=== PATIENT | female | born 1950 | race African-American/Black ===

== ENCOUNTER → 2016-11-14 | Outpatient (CLI) | payer MEDICARE, OTHER ==
[~2016-11-14] VITALS: Ht 167.6 cm; Wt 51.7 kg
[2016-11-14] VITALS (7 sets, daily range): BP systolic 107–133; BP diastolic 46–57
[~2016-11-14] MED LIST: ACETAMINOPHEN 325 MG TABLET. PO ONE; AMIO200T2 PO; AMLO5TAB2 PO; ASPI-482 PO; ATOR20TA PO; CLOP75TA27 PO; DIPHENHYDRAMINE HCL 25 MG CAPSULE PO ONE; FUROSEMIDE 20 MG/2 ML VIAL IVP ONE; HEPARIN PF 500 UNIT/5 ML DISP.SYRIN. IV ONE; INSU100V13 SQ; METO25TA4 PO; OMEP20TA63 PO
[2016-11-14 10:48] LABS: BASO % 1 % (0-3); EOS % 3 % (0-3); LYMPH # 0.5 x10^3/uL (1.0-4.8); LYMPH % 14 % (24-48); MEAN CORPUSCULAR HEMOGLOBIN 30 pg (25-35); MEAN CORPUSCULAR HGB CONC 33 g/dL (31-37); MEAN CORPUSCULAR VOLUME 90 fL (79-100); MONO % 7 % (0-9); NEUT % 76 % (31-73); PLATELET COUNT 91 x10^3/uL (140-400); RED BLOOD COUNT 2.24 x10^6/uL (3.50-5.40); RED CELL DISTRIBUTION WIDTH 22.7 % (11.5-14.5); WHITE BLOOD COUNT 3.4 x10^3/uL (4.0-11.0)
[2016-11-14 10:54] LABS: HEMATOCRIT 20.1 % (36.0-47.0); HEMOGLOBIN 6.7 g/dL (12.0-15.5)
[2016-11-14 11:20] LABS: PLT ESTIMATE DECREASED (ADEQUATE)
[2016-11-14 11:21] LABS: ANISOCYTOSIS MOD
[2016-11-14 11:24] LABS: HYPOCHROMIA SLIGHT
== END | disposition home or self-care (01) ==
LOC: OPS 09:22
PROVIDERS: ATTEND Internal Medicine Hematology & Oncology
DX: C18.2 Malignant neoplasm of ascending colon (principal)
CPT/HCPCS: 36415; 36430; 36591; 85007; 85027; 86850; 86900; 86901; 86920; 96523; P9016; Q0163

== ENCOUNTER → 2016-12-20 | Outpatient (CLI) | payer MEDICARE, OTHER ==
[2016-11-14 16:10] VITALS: BP 133/53
[~2016-12-20] MED LIST changes: -ACETAMINOPHEN 325 MG TABLET. PO ONE; -DIPHENHYDRAMINE HCL 25 MG CAPSULE PO ONE; -FUROSEMIDE 20 MG/2 ML VIAL IVP ONE; -HEPARIN PF 500 UNIT/5 ML DISP.SYRIN. IV ONE
--- NOTE | 2016-12-20 12:22 | RAD ---
EXAM: PET/CT SKULL BASE TO MID THIGH. HISTORY: Colon cancer undergoing restaging COMPARISON: 10/18/2016. TECHNIQUE: CT was performed from the skull base through the mid thighs for the purposes of attenuation correction. 11.0 mCi F-18 fluorodeoxyglucose (FDG) was administered intravenously. After an uptake period, positron emission tomography was performed from the skull base through the mid thighs. The PET and CT data were fused and interpreted in combination a dedicated workstation. Blood glucose level was 110 mg/dL at the time of FDG administration. FINDINGS: Multiple bilateral pulmonary nodules have increased in size slightly since the prior study. The largest in the left lower lobe measures 13 mm as compared with 11 mm previously. Most of the nodules have increased by a few millimeters. These are FDG avid with maximum SUV approximately 3.7. There are now groundglass infiltrates in a subpleural and basilar distribution. These only demonstrate mild hypermetabolism with respect to background lung parenchyma. The large lesion within the right hepatic lobe measures 46.4 x 4.0 cm. This is stable slightly increased. Max SUV is 11.7. No clearly new hepatic lesions are seen. There is diffuse hypermetabolism throughout the bone marrow. This is most likely from bone marrow simulating medications. Activity at the anus is likely muscular. Additional CT findings include a left port catheter. There are changes of coronary artery bypass grafting. There are changes of right mastectomy and reconstruction. A right renal cyst measures 2.3 cm. There is a small hiatal hernia. A gallstone is suspected. There is diffuse bladder wall thickening. IMPRESSION: 1. Pulmonary metastases have increased in size slightly since the prior study. 2. The right hepatic lobe metastasis is stable to slightly increased. 3. Interval development of basilar and subpleural predominant groundglass opacities. This may reflect interstitial pneumonitis from a drug reaction, or atypical pneumonia. Lymphangitic spread of tumor is less favored based on these findings. 4. Diffuse marrow hypermetabolism likely reflects marrow stimulation. 5. Additional CT findings as above.
== END | disposition home or self-care (01) ==
LOC: PETSC 10:40
PROVIDERS: ATTEND Internal Medicine Hematology & Oncology
DX: C78.5 Secondary malignant neoplasm of large intestine and rectum (principal)
CPT/HCPCS: 78815; A9552

== ENCOUNTER 2017-01-15 00:57 | Emergency (ER) | payer MEDICARE, OTHER ==
[~2017-01-15] VITALS: Ht 162.6 cm; Wt 53.5 kg
[2017-01-15 01:40] LABS: BASO # 0.2 x10^3/uL (0.0-0.2); BASO % 1 % (0-3); EOS % 1 % (0-3); HEMATOCRIT 30.3 % (36.0-47.0); HEMOGLOBIN 9.9 g/dL (12.0-15.5); LYMPH # 3.2 x10^3/uL (1.0-4.8); LYMPH % 13 % (24-48); MEAN CORPUSCULAR HEMOGLOBIN 31 pg (25-35); MEAN CORPUSCULAR HGB CONC 33 g/dL (31-37); MEAN CORPUSCULAR VOLUME 95 fL (79-100); MONO % 7 % (0-9); NEUT % 79 % (31-73); PLATELET COUNT 163 x10^3/uL (140-400); RED CELL DISTRIBUTION WIDTH 21.1 % (11.5-14.5); WHITE BLOOD COUNT 25.2 x10^3/uL (4.0-11.0)
[2017-01-15 01:58] LABS: CALCIUM 9.3 mg/dL (8.5-10.1); CREATININE 1.4 mg/dL (0.6-1.0); GFR 45.4; POTASSIUM 3.7 mmol/L (3.5-5.1)
[2017-01-15 02:12] VITALS: BP 170/82
[2017-01-15] MEDS ORDERED: ASPIRIN 325 MG TABLET PO ONE (02:15)
[2017-01-15] MEDS ORDERED: FENTANYL PF 100 MCG/2 ML VIAL. IV ONE (02:15)
--- NOTE | 2017-01-15 02:41 | PHYS DOC ---
Past Medical History Past Medical History: Cancer, Hypertension Additional Past Medical Histor: BREAST CANCER Past Surgical History: Cancer Surgery, Coronary Bypass Surgery Additional Past Surgical Histo: 1 STENT Alcohol Use: None Drug Use: None Adult General Chief Complaint Chief Complaint: CHEST WALL PAIN HPI HPI Patient is a 66 year old female who presents for mild, crampy, constant, diffuse chest discomfort since around 1400 after adjusting her window at home. She denies n/v, f/c, dyspnea, cough, rhinorrhea, hemoptysis, leg pain or swelling, rhinorrhea, sore throat. Review of Systems Review of Systems Constitutional: Denies fever or chills [] Eyes: Denies change in visual acuity, redness, or eye pain [] HENT: Denies nasal congestion or sore throat [] Respiratory: Denies cough or shortness of breath [] Cardiovascular: No additional information not addressed in HPI [] GI: Denies abdominal pain, nausea, vomiting, bloody stools or diarrhea [] : Denies dysuria or hematuria [] Musculoskeletal: Denies back pain or joint pain [] Integument: Denies rash or skin lesions [] Neurologic: Denies headache, focal weakness or sensory changes [] Endocrine: Denies polyuria or polydipsia [] Current Medications Current Medications Current Medications Medications (Trade) Dose Ordered Sig/Severo Start Time Stop Time Status Last Admin Dose Admin Aspirin (Simon Aspirin) 325 mg 1X ONCE 01/15/17 02:15 01/15/17 02:16 DC 01/15/17 02:11 325 MG Fentanyl Citrate (Fentanyl 2ml Vial) 25 mcg 1X ONCE 01/15/17 02:15 01/15/17 02:16 DC 01/15/17 02:13 25 MCG Allergies Allergies Allergies Coded Allergies Type Severity Reaction Last Updated Verified No Known Drug Allergies 11/14/16 No Physical Exam Physical Exam Constitutional: Well developed, well nourished, no acute distress, non-toxic appearance. [] HENT: Normocephalic, atraumatic, bilateral external ears normal, oropharynx moist, nose normal. [] Eyes: PERRLA, EOMI. [] Neck: Normal range of motion, supple. [] Cardiovascular:Heart rate regular rhythm [] Lungs & Thorax: Bilateral breath sounds clear to auscultation. No chest wall tenderness [] Abdomen: Bowel sounds normal, soft, no tenderness. [] Skin: Warm, dry, no erythema, no rash. [] Back: No tenderness, no CVA tenderness. [] Extremities: No tenderness, ROM intact, no edema. [] Neurologic: Alert and oriented X 3, normal motor function, normal sensory function, no focal deficits noted. [] Psychologic: Affect normal, judgement normal, mood normal. [] Current Patient Data Vital Signs Vital Signs Date Time Temp Pulse Resp B/P Pulse Ox O2 Delivery O2 Flow Rate FiO2 01/15/17 02:13 20 97 01/15/17 02:12 66 170/82 Room Air 01/15/17 01:10 98.4 98.4 Lab Values Laboratory Tests Test 01/15/17 01:19 White Blood Count 25.2x10^3/uL (4.0-11.0) H Red Blood Count 3.20x10^6/uL (3.50-5.40) L Hemoglobin 9.9g/dL (12.0-15.5) L Hematocrit 30.3% (36.0-47.0) L Mean Corpuscular Volume 95fL (79-100) Mean Corpuscular Hemoglobin 31pg (25-35) Mean Corpuscular Hemoglobin Concent 33g/dL (31-37) Red Cell Distribution Width 21.1% (11.5-14.5) H Platelet Count 163x10^3/uL (140-400) Neutrophils (%) (Auto) 79% (31-73) H Lymphocytes (%) (Auto) 13% (24-48) L Monocytes (%) (Auto) 7% (0-9) Eosinophils (%) (Auto) 1% (0-3) Basophils (%) (Auto) 1% (0-3) Neutrophils # (Auto) 19.9x10^3uL (1.8-7.7) H Lymphocytes # (Auto) 3.2x10^3/uL (1.0-4.8) Monocytes # (Auto) 1.8x10^3/uL (0.0-1.1) H Eosinophils # (Auto) 0.2x10^3/uL (0.0-0.7) Basophils # (Auto) 0.2x10^3/uL (0.0-0.2) Segmented Neutrophils % 42% (35-66) Band Neutrophils % 21% (0-9) H Lymphocytes % 26% (24-48) Monocytes % 7% (0-10) Eosinophils % 2% (0-5) Metamyelocytes % 2% (0-0) H Platelet Estimate Adequate (ADEQUATE) Anisocytosis Mod Sodium Level 140mmol/L (136-145) Potassium Level 3.7mmol/L (3.5-5.1) Chloride Level 100mmol/L (98-107) Carbon Dioxide Level 26mmol/L (21-32) Anion Gap 14 (6-14) Blood Urea Nitrogen 20mg/dL (7-20) Creatinine 1.4mg/dL (0.6-1.0) H Estimated GFR (Cockcroft-Gault) 45.4 Glucose Level 131mg/dL (70-99) H Calcium Level 9.3mg/dL (8.5-10.1) Troponin I Quantitative < 0.017ng/mL (0.000-0.055) GD-Xzi-[id number]-Type Natriuretic Peptide 540pg/mL (0-124) H Laboratory Tests 01/15/17 01:19 Laboratory Tests 01/15/17 01:19 EKG EKG EKG as interpreted by me as normal sinus rhythm, rate 86, no ST-T changes, normal intervals, no ectopy Radiology/Procedures Radiology/Procedures Chest x-ray as interpreted by me as diffuse interstitial infiltrates Course & Med Decision Making Course & Med Decision Making Pertinent Labs and Imaging studies reviewed. (See chart for details) Has leukocytosis and interstitial infiltrates on chest x-ray, however she does not have symptoms of pneumonia. Suspect her chest x-ray is chronic in nature. Workup is otherwise unremarkable and she continues to feel well at this time. Return precautions given. She understands and agrees with plan. Dragon Disclaimer Dragon Disclaimer This electronic medical record was generated, in whole or in part, using a voice recognition dictation system. Departure Departure Impression: Primary Impression: Chest pain Disposition: HOME, SELF-CARE Condition: STABLE Referrals: RAYNA RODRIGUEZ (PCP) Patient Instructions: Chest Pain (Nonspecific), [id number] Additional Instructions: Follow-up with your primary care doctor. Return for any concerns. Problem Qualifiers Primary Impression: Chest pain Chest pain type: unspecified Qualified Code: R07.9 - Chest pain, unspecified WHITE,J. NAFISA MD Jan 15, 2017 02:41
[2017-01-15 04:34] LABS: % EOS 2 % (0-5)
[2017-01-15 04:35] LABS: PLT ESTIMATE ADEQUATE (ADEQUATE)
[2017-01-15 04:36] LABS: ANISOCYTOSIS MOD
--- NOTE | 2017-01-15 06:54 | EKG ---
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
--- NOTE | 2017-01-15 07:16 | RAD ---
Chest, 2 views, 01/15/2017: History: Chest pain No previous chest radiographs are available at this time for comparison purposes. CT images from the 12/20/2016 PET exam are available. There has been a previous median sternotomy. A left Port-A-Cath extends to the level of the atriocaval junction. The heart is mildly enlarged. There is aortic calcific plaquing. There are bilateral airspace and interstitial opacities as well as underlying pulmonary nodules, better demonstrated on the previous CT study. No pleural fluid or pneumothorax is evident. The bony structures are demineralized. IMPRESSION: 1. Multiple bilateral pulmonary nodules compatible with metastatic disease. 2. Interstitial and airspace opacities in both lungs with diagnostic considerations including pneumonia on an infectious or drug reaction basis, lymphangitic metastatic disease or a combination of the above.
== END 2017-01-15 02:53 | disposition home or self-care (01) ==
LOC: ER 00:57
DX: R07.9 Chest pain, unspecified (principal); I10 Essential (primary) hypertension; Z95.1 Presence of aortocoronary bypass graft
CPT/HCPCS: 36415; 71020; 80048; 83880; 84484; 85007; 85027; 93005; 96374; 99285; J3010

== ENCOUNTER → 2017-02-14 | Outpatient (CLI) | payer MEDICARE, OTHER ==
[2017-01-15 02:12] VITALS: BP 170/82
--- NOTE | 2017-02-15 09:34 | RAD ---
Indication colon cancer. Restaging. PET/CT was performed from the skull through the proximal thigh. CT was performed primarily for localization and attenuation purposes as opposed to primary diagnostic purposes. Note is made of a previous examination 12/20/2016. 14.8 mCi of FDG was administered. The blood sugar during the examination was monitored and 142. On CT multiple pulmonary nodules are seen compatible with metastatic disease. The nodules, overall, appear stable to perhaps slightly smaller in size.. Known metastatic deposit in the liver is noted. It appears relatively stable on CT. A new finding in the abdomen is not seen. On the PET hypermetabolism associated with the pulmonary nodules is noted however the intensity of the uptake is slightly less than on the previous exam. Maximum SUV of a nodule previously was 3.7 whereas now it is 2.4. These findings are compatible with a favorable therapeutic response. Known metastatic deposit, in the liver, is relatively unchanged and the SUV is similar to the previous exam. A new finding in the abdomen or pelvis is not seen. Diffuse hypermetabolism in the bone marrow is noted similar to the previous exam and is likely secondary to marrow stimulation.. IMPRESSION: Multiple pulmonary nodules are again seen but the nodules appear slightly less metabolically active than on the previous exam compatible with a favorable therapeutic response. Unchanged focus of metastatic disease in the liver. Diffuse hypermetabolism in the bone marrow likely reflecting marrow stimulation
== END | disposition home or self-care (01) ==
LOC: PETSC 07:29
PROVIDERS: ATTEND Internal Medicine Hematology & Oncology
DX: C18.9 Malignant neoplasm of colon, unspecified (principal)
CPT/HCPCS: 78815; A9552

== ENCOUNTER → 2017-04-25 | Outpatient (CLI) | payer MEDICARE, OTHER ==
[~2017-04-25] MED LIST changes: -CLOP75TA27 PO; +CLOP75TA57 PO
--- NOTE | 2017-04-25 11:54 | RAD ---
PET/CT imaging from the skull through the midthigh April 25, 2017 History: History of colon cancer. Restaging. Comparison: February 14, 2017 Technique: PET examination was performed from the skull base to the proximal thighs after intravenous administration of 13 mCi Fluorine [address] scan was performed for the purposes of localization and attenuation, not for primary diagnosis. Blood glucose level at time of injection was 115 mg/dl. Findings: Head and neck: No abnormal FDG uptake is seen. Chest: Multiple bilateral lung nodules are again seen and no significant change from the previous study. No new thoracic lymphadenopathy is seen. Physiologic activity is seen within the esophagus. Abdomen and pelvis: Again seen is the metastatic focus within the posterior segment of the right lobe of the liver which has not changed significantly in size. Maximum SUV of this area is 12 today and 8.5 previously. Physiologic activity is seen within the colon. Musculoskeletal: Again seen is diffuse osseous metabolic activity which may be related to increased marrow stimulation. Overall, the SUV activity has decreased Impression: No change in multiple metastatic lung nodules. No change in size of metastatic focus of the posterior segment of the right lobe of the liver. Maximum SUV has increased from 8.5 to 12. No new finding.
== END | disposition home or self-care (01) ==
LOC: PETSC 07:28
PROVIDERS: ATTEND Internal Medicine Hematology & Oncology
DX: C18.9 Malignant neoplasm of colon, unspecified (principal); C78.5 Secondary malignant neoplasm of large intestine and rectum; R91.8 Other nonspecific abnormal finding of lung field
CPT/HCPCS: 78815; A9552

== ENCOUNTER → 2017-06-27 | Outpatient (CLI) | payer MEDICARE, OTHER ==
--- NOTE | 2017-06-27 14:12 | RAD ---
Exam performed: Nuclear medicine PET scan. History: [Restaging colon cancer]. Date of service: 06/27/17. Comparison: Previous PET scan from 04/25/17 and 02/14/17.. Technique: Patient was injected 15.0 mCi of F-18 FDG intravenously and delayed whole-body images are obtained from the skull base to the mid thighs. Corresponding noncontrast enhanced images are obtained for the purposes of attenuation correction and anatomical correlation. Patient's fasting blood glucose level at the time of injection measures 129.0 mg/dL. Findings: Numerous bilateral pulmonary nodules are redemonstrated some of which appear increased in size and some new nodules have developed in the interim. There is slight increased hypermetabolic activity in some of the nodules for example 12 mm nodule in the right upper lobe demonstrates SUV value of up to 3.9, previously measuring up to 2.7. Conglomerate of nodules in the posterior right lower lobe demonstrates SUV values of up to 5.0, previously measuring up to 3.5. There are additional similar nodules demonstrating increasing hypermetabolic activity. Large focus of hypermetabolic activity in the posterior right hepatic lobe appears larger in size and measures to the order of 8.2 x 7.0 cm in maximum transverse and AP dimension (previously measuring up to 6.8 x 5.8 cm). This demonstrates SUV value of up to 11.3. A small focus of increased hypermetabolic activity is now seen in the subdiaphragmatic left hepatic lobe demonstrating SUV value of up to 6.5. This was not previously clearly identified. A similar area of faint increased hypermetabolic activity in the anterior left hepatic lobe demonstrates SUV value of 4.3. A fourth lesion in the left hepatic lobe measures SUV value of 4.5. These are not clearly defined on the corresponding CT images. Diffuse increased hypermetabolic activity seen in the bone marrow similar to previous exam Visualized brain appears normal. No abnormal hypermetabolic activity or mass lesion seen in the neck. No hypermetabolic lymph nodes seen in the axilla, mediastinum or hilum. No hypermetabolic retroperitoneal or mesenteric lymphadenopathy seen. Diffuse atheromatous aortic calcification. Simple right renal cyst. Postoperative changes in the right colon. Multiple pelvic phleboliths. The bones are grossly normal. Impression: 1. Increased in size and SUV value of a previously seen large right hepatic lobe mass with development of few other hypermetabolic masses in the left hepatic lobe. 2. Interval development of a few new pulmonary nodules with increased hypermetabolic activity in a few of the pre-existing nodules. Overall worsening metastatic disease. 3. Diffuse increased bone marrow hypermetabolic activity similar to previous exam probably reflecting marrow stimulation. PQRS Compliance Statement: One or more of the following individualized dose reduction techniques were utilized for this examination: 1. Automated exposure control 2. Adjustment of the mA and/or kV according to patient size 3. Use of iterative reconstruction technique
== END | disposition home or self-care (01) ==
LOC: PETSC 08:10
PROVIDERS: ATTEND Internal Medicine Hematology & Oncology
DX: C18.2 Malignant neoplasm of ascending colon (principal)
CPT/HCPCS: 78815; A9552